=== PATIENT | male | born 1975 | race African-American/Black ===

== ENCOUNTER 2016-10-31 07:12 | Emergency (ER) | payer OTHER ==
[~2016-10-31] VITALS: Ht 170.2 cm; Wt 102.0 kg
[~2016-10-31 07:12] MED LIST: AMOX500C PO; CHLO.12%30 SSP; HYDR-3533 PO; IBUP800T23 PO; PENI500T PO
[2016-10-31 07:14] VITALS: BP 136/89; PULSE 99; RESP 20; TEMP 98; O2SAT 99
--- NOTE | 2016-10-31 07:28 | PD ---
HPI Chief Complaint: Back/ Neck Pain or Injury Time Seen by Provider: 07:27 Travel History International Travel<30 days: No Contact w/Intl Traveler<30days: No Traveled to known affect area: No History of Present Illness HPI 41-year-old male presents emergency Department with complaint of low back pain, worse on the left with radiation down the leg, since last night after working. Says he does a lot of heavy lifting during working hours a back brace but was experiencing back pain last night after work. Denies encopresis, saddlebag paresthesias, incontinence. Denies fever, vomiting, abdominal pain. Denies IV drug use, cancer. Denies paresthesias, loss of sensation, decreased range of motion, decreased strength to bilateral lower summaries. Reports being ambulatory. Took hydrocodone last night that he had left over from an abscessed tooth with good relief of pain. No known allergies. Has no other medical complaints. No other modifying factors or associated signs and symptoms. PFSH Social History Alcohol Use: No Tobacco Use: No Substance Use: Yes Allergies-Medications (Allergen,Severity, Reaction): Coded Allergies: No Known Allergies (Unverified , 05/25/16) Reported Meds & Prescriptions Reported Meds & Active Scripts Active Ibuprofen 800 Mg Tab 800 Mg PO Q6HR PRN Flexeril (Cyclobenzaprine HCl) 10 Mg Tab 10 Mg PO TID PRN Ibuprofen 800 Mg Tab 800 Mg PO Q8H PRN Lortab (Hydrocodone-Acetaminophen) 5-325 Mg Tab 1 Tab PO Q4H PRN Amoxicillin 500 Mg Cap 500 Mg PO TID Peridex Oral Rinse (Chlorhexidine Gluconate) 0.12 % Lorna 15 Ml SSP BID Ibuprofen 800 Mg Tab 800 Mg PO TID PRN Pen Vk (Penicillin V Potassium) 500 Mg Tab 500 Mg PO Q6 10 Days Review of Systems Except as stated in HPI: all other systems reviewed are Neg Physical Exam Narrative GENERAL: Well-nourished, well-developed male patient, in no acute distress SKIN: Warm and dry. HEAD: Atraumatic. Normocephalic. EYES: Pupils equal and round. No scleral icterus. No injection or drainage. ENT: Mucosa pink and moist. Airway patent. NECK: Trachea midline. CARDIOVASCULAR: Regular rate. RESPIRATORY: No accessory muscle use. GASTROINTESTINAL: Rounded. MUSCULOSKELETAL: Bilateral lower extremities supple and non-tense with 2+ pedal pulses and sensory intact; with full range of motion and 5/5 strength. 2 + DTRs bilaterally. Active dorsiflexion and extension of bilateral feet. Bilateral straight leg raise is negative for low back pain. Ambulatory in room with left-sided limp. Sitting up in bed at 90. No obvious deformities. No clubbing. No cyanosis. No edema. BACK: No midline point tenderness on palpation of the lumbar spine. Tenderness on palpation of bilateral iliosacral area; worse on the left. No obvious deformities. NEUROLOGICAL: Awake and alert. Oriented 3. No obvious cranial nerve deficits. Motor grossly within normal limits. Normal speech. Moves all extremities. 5/5 strength to all extremities. Sensory intact. PSYCHIATRIC: Appropriate mood and affect; insight and judgment normal. Data Data Last Documented VS Vital Signs Date Time Temp Pulse Resp B/P Pulse Ox O2 Delivery O2 Flow Rate FiO2 10/31/16 07:14 98.0 99 20 136/89 99 Room Air Orders Methocarbamol (Robaxin) (10/31/16 07:30) Ibuprofen (Motrin) (10/31/16 07:30) MDM Medical Decision Making Medical Screen Exam Complete: Yes Emergency Medical Condition: Yes Medical Record Reviewed: Yes Differential Diagnosis Low back strain, acute low back pain, sciatica Narrative Course 41-year-old male physical exam and history of present illness consistent with low back strain and acute low back pain with left-sided sciatica. Denies encopresis, incontinence, saddle anesthesias. Denies fever, vomiting. Patient is afebrile and nontoxic-appearing. Denies any drug use, cancer. Has no midline point tenderness oblation of the lumbar spine. Ambulatory in the room with a left-sided limp. Ibuprofen and Robaxin administered in the ER. Flexeril and ibuprofen prescribed for home. Patient verbalizes understanding and agreement with treatment plan. Patient is medically cleared and stable for discharge. Discussed reasons to return to the emergency department. Instructed patient to follow up with primary care provider. Patient agrees with treatment plan. The patients vital signs are stable and the patient is stable for outpatient follow-up and treatment. Patient discharged home, stable and in no acute distress. Diagnosis Primary Impression: Low back strain Qualified Code: S39.012A - Low back strain, initial encounter Additional Impression: Low back pain with left-sided sciatica Qualified Code: M54.42 - Bilateral low back pain with left-sided sciatica, unspecified chronicity Referrals: Primary Care Physician Patient Instructions: Acute Low Back Pain (ED), General Instructions, Low Back Strain (ED), Lower Back Exercises (ED), Sciatica (ED) Departure Forms: Tests/Procedures, Work Release Enter return to work date: November 05, 2016 Additional Instructions: Tylenol or ibuprofen as directed and as needed to reduce pain Robaxin as prescribed for muscle spasms Get adequate rest Ice and/or heating pad to affected area to reduce pain Avoid aggravating activity; increase activity as tolerated Follow-up with primary care provider Return to the emergency department immediately with worsening symptoms Med/Other Pt SpecificInfo: Prescription(s) given Scripts Ibuprofen 800 Mg [id number] Mg PO Q6HR PRN (PAIN) #30 TAB Ref 0 Prov:Petty Sparks 10/31/16 Cyclobenzaprine (Flexeril)10 Mg Tab10 Mg PO TID PRN (MUSCLE SPASM) #30 TAB Ref 0 Prov:Petty Sparks 10/31/16 Disposition: 01 DISCHARGE HOME Condition: Stable Petty Sparks October 31, 2016 07:28
[2016-10-31] MEDS ORDERED: METHOCARBAMOL 500 MG TAB PO ONE (07:30)
[2016-10-31] MEDS ORDERED: IBUPROFEN 800 MG TAB PO ONE (07:30)
[2016-10-31] MEDS ORDERED: CYCL1TAB29 PO (07:30)
[2016-10-31] MEDS ORDERED: IBUP800T23 PO (07:30)
== END 2016-10-31 07:48 | disposition home or self-care (01) ==
LOC: NEPK 07:12
DX: S39.012A Strain of muscle, fascia and tendon of lower back, initial encounter (principal); M54.42 Lumbago with sciatica, left side; X50.0XXA Overexertion from strenuous movement or load, initial encounter
CPT/HCPCS: 99283